=== PATIENT | female | born 1955 | race Caucasian/White ===

== ENCOUNTER 2021-01-06 15:45 | Inpatient (IN) ==
[2021-01-06] MEDS ORDERED: Aspirin 325 MG TABLET PO ONE (15:53)
[2021-01-06] MEDS ORDERED: Ipratropium/Albuterol Neb 3 ML IH ONE (15:53)
[2021-01-06] MEDS ORDERED: predniSONE 20 MG TABLET PO ONE (16:00)
[2021-01-06 16:25] LABS: Basophils # 0.1 K/mcL (0.0-0.2); Basophils % 0.8 %; Hematocrit 34.2 % (35.3-44.9); Hemoglobin 10.4 g/dL (11.5-15.4); Lymphocytes # 0.9 K/mcL (0.6-4.6); Mean Corpuscular HGB Conc 30.4 g/dL (31.6-35.5); Mean Corpuscular Volume 91.9 fL (83.0-100.0); Mean Platelet Volume 9.4 fL (9.4-12.4); Monocytes # 0.5 K/mcL (0.0-1.3); Monocytes % 5.5 %; Neutrophils # 7.1 K/mcL (1.6-8.9); Platelet Count 254 K/mcL (140-400); Red Blood Count 3.72 M/mcL (3.82-4.97); Red Cell Distribution Width 14.8 % (11.5-14.5); Segmented Neutrophils % 81.7 %; White Blood Count 8.7 K/mcL (4.3-11.1)
[2021-01-06 16:39] LABS: Prothrombin Time 11.2 Seconds (9.4-12.1)
[2021-01-06 16:46] LABS: BUN/Creatinine Ratio 19 (6-26); Blood Urea Nitrogen 14 mg/dL (8-23); Calcium 10.1 mg/dL (8.6-10.3); Carbon Dioxide 33 mEq/L (23-29); Chloride 101 mEq/L (98-107); Glucose 135 mg/dL (70-105); Osmolality,Calculated 293 (280-300); Potassium 4.3 mEq/L (3.5-5.1); Sodium 140 mEq/L (136-145); eGFR For African Americans > 60 (> 60); eGFR For Non-African Americans > 60 (> 60)
[2021-01-06 16:47] LABS: Troponin I < 0.03 ng/mL (< 0.04)
[2021-01-06] MEDS ORDERED: Morphine Sulfate 2 MG/ML SYRINGE IVP ONE (16:53)
[2021-01-06] MEDS ORDERED: Morphine Sulfate 2 MG/ML SYRINGE IVP PRN (17:16)
[2021-01-06] MEDS ORDERED: Nitroglycerin 0.4 MG TAB.SUBL SL PRN (17:16)
[2021-01-06] MEDS ORDERED: Ondansetron 4 MG/2 ML VIAL IVP PRN (17:16)
[2021-01-06] MEDS ORDERED: Azithromycin 250 MG TABLET PO ONE (17:39)
[2021-01-06] MEDS ORDERED: D5% in Water 1,000 ML IVC PRN (17:44)
[2021-01-06] MEDS ORDERED: Dextrose Gel 15 GM/37.5 ML TUBE PO PRN ×2 (17:44)
[2021-01-06] MEDS ORDERED: *HR* Dextrose 50 % in Water (Vial) 50 ML VIAL IVP PRN (17:44)
[2021-01-06] MEDS: Ipratropium/Albuterol Neb 3 ML IH SCH ×2 (19:50→22:56)
[2021-01-06] MEDS: Insulin LISPRO 300 UNITS/3 ML VIAL SUBQ SCH (21:42)
[2021-01-06] MEDS ORDERED: *HR* LORazepam 2 MG/ML VIAL IVP ONE (22:55)
[2021-01-06] MEDS ORDERED: *HR* OxyCODONE/APAP 5/325 TABLET PO ONE (23:35)
[2021-01-07 03:06] LABS: Alanine Aminotransferase 11 Units/L (7-52); Albumin 3.7 g/dL (3.5-5.7); Albumin/Globulin Ratio 1.7 (1.1-2.2); Alkaline Phosphatase 57 Units/L (34-104); Aspartate Amino Transferase 11 Units/L (13-39); BUN/Creatinine Ratio 23 (6-26); Bilirubin,Total 0.5 mg/dL (0.3-1.0); Blood Urea Nitrogen 16 mg/dL (8-23); Calcium 9.9 mg/dL (8.6-10.3); Carbon Dioxide 29 mEq/L (23-29); Chloride 103 mEq/L (98-107); Globulin 2.2 g/dL (2.4-3.5); Glucose 208 mg/dL (70-105); Magnesium 1.9 mg/dL (1.6-2.6); Osmolality,Calculated 295 (280-300); Potassium 4.5 mEq/L (3.5-5.1); Sodium 139 mEq/L (136-145); Total Protein 5.9 g/dL (6.4-8.9); Troponin I < 0.03 ng/mL (< 0.04); eGFR For African Americans > 60 (> 60); eGFR For Non-African Americans > 60 (> 60)
[2021-01-07] MEDS: Ipratropium/Albuterol Neb 3 ML IH SCH ×6 (03:48→23:14)
[2021-01-07 04:26] LABS: Hematocrit 32.3 % (35.3-44.9); Hemoglobin 9.8 g/dL (11.5-15.4); Mean Corpuscular HGB Conc 30.3 g/dL (31.6-35.5); Mean Corpuscular Hemoglobin 27.9 pg (28.0-33.3); Mean Platelet Volume 10.2 fL (9.4-12.4); Platelet Count 223 K/mcL (140-400); Red Blood Count 3.51 M/mcL (3.82-4.97); Red Cell Distribution Width 14.6 % (11.5-14.5)
[2021-01-07 04:27] LABS: Basophils % 0.3 %; Immature Granulocytes % 1.6 % (0-4); Lymphocytes # 42.4 K/mcL (0.6-4.6); Monocytes # 0.1 K/mcL (0.0-1.3); Monocytes % 1.3 %; Neutrophils # 6.3 K/mcL (1.6-8.9); Segmented Neutrophils % 90.2 %
[2021-01-07] MEDS ORDERED: Regadenoson 0.4 MG/5 ML SYRINGE IVP ONE (07:04)
[2021-01-07] MEDS ORDERED: Melatonin 3 MG TABLET PO PRN (07:12)
[2021-01-07] MEDS ORDERED: polyethylene glycoL 3350 17 GM POWD.PACK PO PRN (07:12)
[2021-01-07] MEDS ORDERED: Morphine Sulfate Immed Rel 15 MG TABLET PO SCH (07:45)
[2021-01-07] MEDS: Budesonide/Formoterol 160/4.5 1 PUFF INH IH SCH ×2 (07:52→19:35)
[2021-01-07] MEDS: Insulin LISPRO 300 UNITS/3 ML VIAL SUBQ SCH ×4 (08:08→20:06)
[2021-01-07] MEDS: Morphine Sulfate Immed Rel 15 MG TABLET PO SCH ×3 (08:13→23:08)
[2021-01-07] MEDS: Gabapentin 300 MG CAPSULE PO SCH ×3 (08:14→20:00)
[2021-01-07] MEDS: amLODIPine 5 MG TABLET PO SCH (10:26)
[2021-01-07] MEDS: predniSONE 20 MG TABLET PO SCH (10:26)
[2021-01-07] MEDS: Cholecalciferol (D-3) 1,000 UNIT (25MCG) TABLET PO SCH ×2 (10:27→20:00)
[2021-01-07] MEDS: Furosemide 20 MG TABLET PO SCH (10:27)
[2021-01-07] MEDS: Lactobacillus 1 EACH CAP.SPRINK PO SCH (10:27)
[2021-01-07] MEDS: Azithromycin 250 MG TABLET PO SCH (10:27)
[2021-01-07] MEDS: OLANZapine 10 MG TAB.RAPDIS PO SCH (10:27)
[2021-01-07] MEDS ORDERED: Perflutren Lipid Microsphere 1.3 ML in 0.9 % Sodium Chloride 8.7 ML IVP PRN (11:18)
[2021-01-07] MEDS: Aspirin 81 MG TAB.CHEW PO SCH (12:23)
[2021-01-07] MEDS: Isosorbide MONOnitrate (24 HR) 30 MG TAB.ER.24H PO SCH (12:23)
[2021-01-07] MEDS: OLANZapine 5 MG TAB.RAPDIS PO SCH (20:00)
[2021-01-08] MEDS: Ipratropium/Albuterol Neb 3 ML IH SCH ×6 (03:00→23:44)
[2021-01-08] MEDS: Budesonide/Formoterol 160/4.5 1 PUFF INH IH SCH ×2 (07:32→19:32)
[2021-01-08] MEDS: Lactobacillus 1 EACH CAP.SPRINK PO SCH (08:19)
[2021-01-08] MEDS: Isosorbide MONOnitrate (24 HR) 30 MG TAB.ER.24H PO SCH (08:19)
[2021-01-08] MEDS: Furosemide 20 MG TABLET PO SCH (08:19)
[2021-01-08] MEDS: Gabapentin 300 MG CAPSULE PO SCH ×3 (08:19→20:47)
[2021-01-08] MEDS: OLANZapine 10 MG TAB.RAPDIS PO SCH (08:19)
[2021-01-08] MEDS: Aspirin 81 MG TAB.CHEW PO SCH (08:19)
[2021-01-08] MEDS: predniSONE 20 MG TABLET PO SCH (08:20)
[2021-01-08] MEDS: amLODIPine 5 MG TABLET PO SCH (08:20)
[2021-01-08] MEDS: Cholecalciferol (D-3) 1,000 UNIT (25MCG) TABLET PO SCH ×2 (08:20→20:46)
[2021-01-08] MEDS: Azithromycin 250 MG TABLET PO SCH (08:20)
[2021-01-08] MEDS: Insulin LISPRO 300 UNITS/3 ML VIAL SUBQ SCH ×4 (08:33→20:51)
[2021-01-08] MEDS: Morphine Sulfate Immed Rel 15 MG TABLET PO SCH ×3 (10:05→23:34)
[2021-01-08 16:00] LABS: Amphetamine Screen,Urine Negative ng/mL (Cutoff=1000); Barbiturate Screen,Urine Negative ng/mL (Cutoff=200); Benzodiazepines Screen,Urine Negative ng/mL (Cutoff=200); Cannabinoid Screen,Urine Negative ng/mL (Cutoff = 50); Cocaine Screen,Urine Negative ng/mL (Cutoff= 300); Opiate Screen,Urine Positive ng/mL (Cutoff=300); Phencyclidine Screen,Urine Negative ng/mL (Cutoff=25)
[2021-01-08] MEDS: *HR* Heparin 5,000 UNIT/ML VIAL SQ SCH (18:16)
[2021-01-08] MEDS: Albuterol 2.5 MG/3 ML NEBULIZER IH PRN (18:45)
[2021-01-08] MEDS: OLANZapine 5 MG TAB.RAPDIS PO SCH (20:46)
[2021-01-09 01:55] LABS: Hematocrit 30.7 % (35.3-44.9); Hemoglobin 9.8 g/dL (11.5-15.4); Mean Corpuscular HGB Conc 31.9 g/dL (31.6-35.5); Mean Corpuscular Hemoglobin 28.6 pg (28.0-33.3); Mean Corpuscular Volume 89.5 fL (83.0-100.0); Mean Platelet Volume 9.7 fL (9.4-12.4); Platelet Count 227 K/mcL (140-400); Red Blood Count 3.43 M/mcL (3.82-4.97); Red Cell Distribution Width 14.8 % (11.5-14.5); White Blood Count 9.8 K/mcL (4.3-11.1)
[2021-01-09 02:05] LABS: BUN/Creatinine Ratio 43 (6-26); Blood Urea Nitrogen 37 mg/dL (8-23); Calcium 9.5 mg/dL (8.6-10.3); Carbon Dioxide 33 mEq/L (23-29); Chloride 98 mEq/L (98-107); Glucose 119 mg/dL (70-105); Osmolality,Calculated 296 (280-300); Potassium 4.3 mEq/L (3.5-5.1); Sodium 138 mEq/L (136-145); eGFR For African Americans > 60 (> 60); eGFR For Non-African Americans > 60 (> 60)
[2021-01-09] MEDS: Ipratropium/Albuterol Neb 3 ML IH SCH ×6 (04:12→23:36)
[2021-01-09] MEDS: *HR* Heparin 5,000 UNIT/ML VIAL SQ SCH ×2 (06:34→17:04)
[2021-01-09] MEDS: Morphine Sulfate Immed Rel 15 MG TABLET PO SCH ×3 (06:34→23:27)
[2021-01-09] MEDS: Budesonide/Formoterol 160/4.5 1 PUFF INH IH SCH ×2 (07:31→19:43)
[2021-01-09] MEDS: Insulin LISPRO 300 UNITS/3 ML VIAL SUBQ SCH ×4 (08:27→20:45)
[2021-01-09] MEDS: OLANZapine 10 MG TAB.RAPDIS PO SCH (08:28)
[2021-01-09] MEDS: amLODIPine 5 MG TABLET PO SCH (08:29)
[2021-01-09] MEDS: Cholecalciferol (D-3) 1,000 UNIT (25MCG) TABLET PO SCH ×2 (08:30→20:44)
[2021-01-09] MEDS: Gabapentin 300 MG CAPSULE PO SCH ×3 (08:30→20:44)
[2021-01-09] MEDS: Aspirin 81 MG TAB.CHEW PO SCH (08:30)
[2021-01-09] MEDS: predniSONE 20 MG TABLET PO SCH (08:30)
[2021-01-09] MEDS: Azithromycin 250 MG TABLET PO SCH (08:31)
[2021-01-09] MEDS: Isosorbide MONOnitrate (24 HR) 30 MG TAB.ER.24H PO SCH (08:31)
[2021-01-09] MEDS: Lactobacillus 1 EACH CAP.SPRINK PO SCH (08:31)
[2021-01-09] MEDS: Furosemide 20 MG TABLET PO SCH ×2 (08:32→09:19)
[2021-01-09] MEDS: Albuterol 2.5 MG/3 ML NEBULIZER IH PRN ×2 (09:33→14:25)
[2021-01-09 13:29] LABS: Albumin 3.6 g/dL (3.5-5.7); Albumin/Globulin Ratio 1.6 (1.1-2.2); Bilirubin,Direct 0.1 mg/dL (0.0-0.2); Bilirubin,Indirect 0.4 mg/dL (0.0-1.0); Bilirubin,Total 0.5 mg/dL (0.3-1.0); Globulin 2.3 g/dL (2.4-3.5); Total Protein 5.9 g/dL (6.4-8.9)
[2021-01-09 13:35] LABS: Hematocrit 30.9 % (35.3-44.9); Hemoglobin 9.9 g/dL (11.5-15.4); Mean Corpuscular Hemoglobin 28.7 pg (28.0-33.3); Mean Corpuscular Volume 89.6 fL (83.0-100.0); Platelet Count 239 K/mcL (140-400); Red Blood Count 3.45 M/mcL (3.82-4.97); Red Cell Distribution Width 14.8 % (11.5-14.5); White Blood Count 9.4 K/mcL (4.3-11.1)
[2021-01-09 13:36] LABS: Immature Granulocytes % 1.7 % (0-4); Immature Platelets 2.1 % (1.1-6.1); Mean Platelet Volume 9.9 fL (9.4-12.4); Neutrophils # 7.9 K/mcL (1.6-8.9); Segmented Neutrophils % 84.4 %
[2021-01-09 13:37] LABS: Basophils % 0.2 %; Lymphocytes % 10.6 %; Monocytes # 0.3 K/mcL (0.0-1.3); Monocytes % 3.1 %
[2021-01-09] MEDS ORDERED: *HR* LORazepam 0.5 MG TABLET PO ONE (14:12)
[2021-01-09 15:41] LABS: Adenovirus Not Detected (Not Detect); Coronavirus 229E Not Detected (Not Detect); Coronavirus HKU1 Not Detected (Not Detect); Coronavirus NL63 Not Detected (Not Detect); Coronavirus OC43 Not Detected (Not Detect); Human Metapneumovirus Not Detected (Not Detect); SARS-CoV-2 Not Detected (Not Detect)
[2021-01-09 15:42] LABS: Bordetella Pertussis Not Detected (Not Detect); Chlamydophila pneumoniae Not Detected (Not Detect); Human Rhinovirus/Enterovirus Not Detected (Not Detect); Influenza A Subtype 2009 H1 Not Detected (Not Detect); Influenza B Not Detected (Not Detect); Mycoplasma pneumoniae Not Detected (Not Detect); Parainfluenza Virus 1 Not Detected (Not Detect); Parainfluenza Virus 2 Not Detected (Not Detect); Parainfluenza Virus 3 Not Detected (Not Detect); Parainfluenza Virus 4 Not Detected (Not Detect); Respiratory Syncytial Virus Not Detected (Not Detect)
[2021-01-09] MEDS: OLANZapine 5 MG TAB.RAPDIS PO SCH (20:44)
[2021-01-10 02:09] LABS: Hematocrit 30.3 % (35.3-44.9); Hemoglobin 9.4 g/dL (11.5-15.4); Mean Corpuscular Hemoglobin 27.9 pg (28.0-33.3); Mean Corpuscular Volume 89.9 fL (83.0-100.0); Mean Platelet Volume 9.8 fL (9.4-12.4); Platelet Count 201 K/mcL (140-400); Red Blood Count 3.37 M/mcL (3.82-4.97); Red Cell Distribution Width 14.6 % (11.5-14.5); White Blood Count 8.1 K/mcL (4.3-11.1)
[2021-01-10 02:29] LABS: BUN/Creatinine Ratio 42 (6-26); Blood Urea Nitrogen 32 mg/dL (8-23); Calcium 9.6 mg/dL (8.6-10.3); Carbon Dioxide 30 mEq/L (23-29); Chloride 100 mEq/L (98-107); Glucose 148 mg/dL (70-105); Osmolality,Calculated 294 (280-300); Sodium 137 mEq/L (136-145); eGFR For African Americans > 60 (> 60); eGFR For Non-African Americans > 60 (> 60)
[2021-01-10] MEDS: Ipratropium/Albuterol Neb 3 ML IH SCH ×2 (03:44→07:17)
[2021-01-10] MEDS: Morphine Sulfate Immed Rel 15 MG TABLET PO SCH (06:29)
[2021-01-10] MEDS: *HR* Heparin 5,000 UNIT/ML VIAL SQ SCH (06:29)
[2021-01-10] MEDS: Budesonide/Formoterol 160/4.5 1 PUFF INH IH SCH (07:21)
[2021-01-10 08:04] VITALS: BP 151/79; PULSE 80; TEMP 97.8; O2SAT 97
[2021-01-10] MEDS: Insulin LISPRO 300 UNITS/3 ML VIAL SUBQ SCH (08:06)
[2021-01-10] MEDS: Azithromycin 250 MG TABLET PO SCH (08:09)
[2021-01-10] MEDS: Cholecalciferol (D-3) 1,000 UNIT (25MCG) TABLET PO SCH (08:09)
[2021-01-10] MEDS: Isosorbide MONOnitrate (24 HR) 30 MG TAB.ER.24H PO SCH (08:09)
[2021-01-10] MEDS: amLODIPine 5 MG TABLET PO SCH (08:09)
[2021-01-10] MEDS: Aspirin 81 MG TAB.CHEW PO SCH (08:09)
[2021-01-10] MEDS: Gabapentin 300 MG CAPSULE PO SCH (08:09)
[2021-01-10] MEDS: Lactobacillus 1 EACH CAP.SPRINK PO SCH (08:09)
[2021-01-10] MEDS: OLANZapine 10 MG TAB.RAPDIS PO SCH (08:09)
[2021-01-10] MEDS: predniSONE 20 MG TABLET PO SCH (08:09)
== END 2021-01-10 08:49 | DRG 191 ==
LOC: SUATTDRO → 3BNU 15:45 → EMEROOARM 15:45 → SUATTDRO 17:56 → 3BNU 18:27 → SUATTDRO 01-08 20:02
PROVIDERS: ADMIT Family Medicine; ATTEND Internal Medicine